=== PATIENT | female | born 1995 | race Caucasian/White ===

== ENCOUNTER 2024-06-06 07:31 | Emergency (ER) | payer OTHER, SELFPAY ==
--- NOTE | ~2024-06-06 | CT_ITS ---
EXAMINATION: CT LUMBAR SPINE WITHOUT CONTRAST CLINICAL INFORMATION: Right lower back pain radiating to right lower extremity for many months COMPARISON: None available. TECHNIQUE: Multiple 2 mm axial images of the lumbar spine were obtained from lower T12 to S1 levels without IV contrast enhancement. Bone window and soft tissue window images were reconstructed. Coronal and Sagittal bone window images were also reconstructed from the axial image data. This CT examination was performed using dose optimization techniques as appropriate, variously including the following: *Automated exposure control *Adjustment of mA and/or kV according to patient size (this includes techniques or standardized protocols for targeted exams where dose is matched to indication/reason for exam; i.e. extremities or head) *Use of iterative reconstruction technique DLP; 383 mGy-cm FINDINGS: The visualized lumbar vertebrae are intact with normal alignment. T12/L1: Bony structures are intact with normal alignment. Intervertebral disc height is normal. Bilateral neuroforamina are patent. Bilateral apophyseal joints are intact with normal alignment. L-1/L-2: Bony structures are intact with normal alignment. Intervertebral disc height is normal. Bilateral neuroforamina are patent. Bilateral apophyseal joints are intact with normal alignment. L2/L3: Bony structures are intact with normal alignment. Intervertebral disc height is normal. Bilateral neuroforamina are patent. Bilateral apophyseal joints are intact with normal alignment. L3/L4: Bony structures are intact with normal alignment. Intervertebral disc height is normal. Bilateral neuroforamina are patent. Bilateral apophyseal joints are intact with normal alignment. L4/L5: Bony structures are intact with normal alignment. Intervertebral disc height is normal. There is marked posterior disc protrusion effacing the anterior thecal sac. There is marked spinal stenosis due to additional impingement by hypertrophic ligamentum flavum. Bilateral neuroforamina are moderately stenosed. Bilateral apophyseal joints are intact with normal alignment. L5/S1: Bony structures are intact with normal alignment. Intervertebral disc height is normal. Bilateral neuroforamina are patent. Bilateral apophyseal joints are intact with normal alignment. CT/CT lumbar spine wo IV con IMPRESSION: Marked posterior disc protrusion at L4/L5 effacing the anterior thecal sac. There is marked spinal stenosis due to additional impingement by hypertrophic ligamentum flavum. Bilateral neuroforamina are moderately stenosed. Electronically signed by: Elliott Tijerina MD 06/06/2024 01:01 PM EDT RP
[2024-06-06 07:33] VITALS: BP 131/96; PULSE 100; RESP 18; TEMP 36.3; O2SAT 100; BMI 27.4
--- NOTE | 2024-06-06 07:37 | ED.GENADULT ---
HPI - General Adult General Chief complaint: Back Pain/Injury Stated complaint: Sciatic pain Time Seen by Provider: 06/06/24 07:33 Source: patient Mode of arrival: ambulatory Limitations: no limitations History of Present Illness ED Provider: Brooks TOUSSAINT narrative: Patient is a 29-year-old female presenting to the emergency department with complaint of severe right lower back pain radiating down right leg. States pain initially began in February, was treated with a short course of steroids at urgent care with minimal improvement. Saw PCP who ordered an x-ray, patient unsure of results, and prescribed gabapentin. Has gone to PT all without significant improvement. States Thursday the pain increased significantly after moving in bed. Denies fevers, saddle anesthesia, bowel or bladder incontinence. Denies history of cancer or IV drug use. Has also tried naproxen and other OTC pain medication without relief. Unable to sleep last night due to pain. MD complaint: back pain Onset (ago): month(s) Location: back Radiation: distal Severity: severe Quality: burning Pain Consistency: constant Relieving factors: none Related Data Previous Rx's ?Medication ?Instructions ?Recorded gabapentin 100 mg capsule 100 mg PO TID #30 caps 06/06/24 ketorolac 10 mg tablet 10 mg PO Q8H PRN pain #12 tabs 06/06/24 lidocaine 5 % topical patch 1 patch topical DAILY #15 ea 06/06/24 prednisone 10 mg tablet 10 mg PO DIRECTED #34 tabs 06/06/24 Allergies Allergy/AdvReac Type Severity Reaction Status Date / Time No Known Allergies Allergy Verified 06/06/24 07:34 Review of Systems Review of Systems: As per HPI. Yes all other systems are reviewed and are negative Constitutional: Constitutional: Reports as per HPI [facility] Social History Social History Advance Directives: No Advance Directives Information Provided: Yes Do you have a plan to hurt others: No Plan Physical Exam ED Vital Signs: Vital Signs - 24 hr 06/06/24 07:33 06/06/24 08:04 06/06/24 09:47 Temperature 97.3 F Pulse Rate 100 72 Respiratory Rate 18 18 16 Blood Pressure 131/96 H 115/79 Pulse Oximetry 100 98 Oxygen Delivery Method Room Air 06/06/24 11:44 Temperature 97.9 F Pulse Rate 100 Respiratory Rate 20 Blood Pressure 131/94 H Pulse Oximetry 96 Oxygen Delivery Method Room Air BMI result Body Mass Index 27.4 Vital signs have been reviewed and appear to be correct. Blood pressure normal. Heart rate normal. Respiratory rate normal. Temperature normal. Oxygen saturation normal. Const General: cooperative, healthy appearing and no acute distress Orientation/consciousness: oriented to person, oriented to place, oriented to time and patient oriented x3 Limitations: no limitations HENMT Head: Yes normocephalic and Yes atraumatic Ears: external ears normal General nose exam: Normal external nose present Face and sinus: Yes face symmetric Mouth: oropharynx normal and moist mucous membranes Throat: Yes uvula midline Eyes Pupils: Equal, round and reactive pupils present Neck Neck: Yes normal visual inspection and Yes supple Resp Effort & Inspection: normal respiratory effort and able to speak in complete sentences Auscultation: clear to auscultation bilaterally Cardio Rate: regular rate Rhythm: regular rhythm Heart sounds: S1 normal heart sound present and S2 normal heart sound present GI Palpation (GI): Soft to palpation and nontender Auscultation: normoactive bowel sounds General: Yes no CVA tenderness Back/Spine/Pelvis Back: no CVA tenderness Thoracic/Lumbar Spine: thoracic and lumbar spine normal to inspection, thoraco-lumbar ROM normal, pain with thoraco-lumbar ROM, No thoracic spinal tenderness, No lumbar spinal tenderness and straight leg raise positive right Skin General skin exam: elasticity normal and turgor normal Neuro General: oriented to person, oriented to place, oriented to time, patient oriented x3, gait normal, tone normal, moves all extremities, Normal light touch and pain sensation, no focal motor deficits, CN's II-XI intact bilaterally and deep tendon reflexes 2+ bilaterally Cranial nerves: Yes Equal, round and reactive pupils present Cognition (Neuro): normal cognition Extrem General: Yes full ROM, Yes no pedal edema and Yes no calf tenderness Psych Mental Status: mental status grossly normal Affect: normal affect Thought process: Normal thought process present Medications Administered Discontinued Medications Generic Name Dose Route Start Last Admin Trade Name Umbertoq PRN Reason Stop Dose Admin Cyclobenzaprine HCl 10 mg 06/06/24 11:50 06/06/24 12:02 Cyclobenzaprine Hcl 10 Mg Tablet PO 06/06/24 11:51 10 mg ONCE ONE Administration Diazepam 2.5 mg 06/06/24 09:50 06/06/24 10:45 Diazepam 10 Mg/2 Ml Cartridge IVPUSH 06/06/24 09:51 2.5 mg STAT STA Administration Hydromorphone HCl 1 mg 06/06/24 07:44 06/06/24 08:04 Hydromorphone Hcl 1 Mg/Ml Syringe IVPUSH 06/06/24 07:45 1 mg ONCE ONE Administration Protocol Ketorolac Tromethamine 15 mg 06/06/24 07:44 06/06/24 08:03 Ketorolac Tromethamine 15 Mg/Ml Vial IVPUSH 06/06/24 07:45 15 mg ONCE ONE Administration Methylprednisolone Sodium Succinate 125 mg 06/06/24 07:44 06/06/24 08:03 Methylprednisolone Sod Succ 125 Mg/2 Ml Vial IVPUSH 06/06/24 07:45 125 mg ONCE ONE Administration Medical Decision Making Medical Decision Making [facility] Narrative: Patient is a 29-year-old female presenting to the emergency department with complaint of severe right lower back pain radiating down right leg. On exam patient is awake, A+Ox3, VS WNL, afebrile, normal neurological exam without focal deficits, physical exam findings as above. Given reported symptoms and physical exam findings, initial differential includes lumbar strain, lumbar radiculopathy, degenerative disc disease, disc herniation, spinal stenosis, spondylosis. Less likely vertebral fracture. Do not suspect malignancy/mass, SEA, cauda equina/cord compression. Disc protrusion at L4/L5 with spinal stenosis. My interpretation is in agreement with the radiologist's interpretation. Patient updated on results and all questions answered. Pain has improved with medication in the ED. Patient comfortable with discharge home, will send prescriptions for toradol, prednisone, and lidocaine patches. Patient declining muslce relaxer at this time. Will refer to neurosurgery for further evaluation and management. Return precautions discussed at bedside. Patient verbalized understanding of and agreement with plan. Differential Diagnosis Differential Diagnoses: The differential diagnosis associated with the presentation includes As per [facility] Admission/Observation Consideration of admission/observation: Escalation of care including admission/observation considered Patient would have been admitted to the hospital had their work up had any findings where hospital admission was appropriate and their clinical presentation warranted hospital admission. Lab Data [facility] Lab Attestation statement: I reviewed the patient's lab results. Labs: Lab Results 06/06/24 Range/Units 08:57 Urine Test NEGATIVE (NEGATIVE) Independent Interpretation I performed an independent interpretation of an: CT Scan Interpretation: Disc protrusion at L4/L5 with spinal stenosis. Radiology Impression Discussion of test interpretation with radiology: I have reviewed the radiologist's reading. Radiologist Impression: CT/CT lumbar spine wo IV con IMPRESSION: Marked posterior disc protrusion at L4/L5 effacing the anterior thecal sac. There is marked spinal stenosis due to additional impingement by hypertrophic ligamentum flavum. Bilateral neuroforamina are moderately stenosed. External Record Review External record reviewed: Inpatient record, Office record and Outpatient record Prescription Management I considered prescription management with: Pain Medication and Other Discharge Plan Discharge Clinical Impression: Bulging lumbar disc, Lumbar radiculopathy Patient Disposition: Home, Self-Care Instructions: Lumbar Radiculopathy (ED) Additional Instructions: Follow up with neurosurgery for further evaluation and management. Toradol as prescribed for pain, do not take with other NSAIDs. Prednisone taper to decrease inflammation. Lidocaine patches to apply topically for up to 12 hours in a 24 hour period. Return with any new weakness, numbness, tingling to extremities, loss of bowel or bladder control, new groin numbness or any other concerning symptoms. Prescriptions: New ketorolac 10 mg tablet 10 mg PO Q8H PRN (Reason: pain) Qty: 12 0RF Rx Instructions: maximum total duration of 5 days from all oral, intranasal, or parenteral formulations gabapentin 100 mg capsule 100 mg PO TID Qty: 30 0RF lidocaine 5 % adhesive patch,medicated 1 patch topical DAILY Qty: 15 0RF Rx Instructions: leave on most painful area for up to 12 hrs prednisone 10 mg tablet 10 mg PO DIRECTED Qty: 34 0RF Rx Instructions: 60mg (6 tabs) x 1 day, then 50mg (5 tabs) x 2 days, then 40mg (4 tabs) x 2 days, then 30mg (3 tabs) x 2 days, then 20mg (2 tabs) x 2 days Referrals: Naldo Echols PA [Physician Program Manager] - Delio Yeboah MD, PhD [Physician] - Stand Alone Forms: Work/School Release Print Language: [place]
[2024-06-06] MEDS: Ketorolac Tromethamine 15 MG/ML VIAL IVPUSH (08:03)
[2024-06-06] MEDS: methylPREDNISolone Sod Succ 125 MG/2 ML VIAL IVPUSH (08:03)
[2024-06-06 08:04] VITALS: RESP 18
[2024-06-06] MEDS: HYDROmorphone HCl 1 MG/ML SYRINGE IVPUSH (08:04)
[2024-06-06 09:06] LABS: UPreg QC Valid YES; Urine Pregnancy NEGATIVE (NEGATIVE)
[2024-06-06 09:47] VITALS: BP 115/79; PULSE 72; RESP 16; O2SAT 98
[2024-06-06] MEDS: diazePAM 10 MG/2 ML CARTRIDGE 2.5 MG IVPUSH (10:45)
[2024-06-06 11:44] VITALS: BP 131/94; PULSE 100; RESP 20; TEMP 36.6; O2SAT 96
[2024-06-06] MEDS: Cyclobenzaprine HCl 10 MG TABLET PO (12:02)
[2024-06-06 13:45] VITALS: BP 131/94; PULSE 100; RESP 20; TEMP 36.6; O2SAT 96
== END 2024-06-06 13:45 | disposition home or self-care (01) ==
PROVIDERS: Registered Nurse Emergency; Emergency Provider Emergency Medicine; PCP Registered Nurse
DX: M51.360 Other intervertebral disc degeneration, lumbar region with discogenic back pain only (principal); M48.061 Spinal stenosis, lumbar region without neurogenic claudication
CPT/HCPCS: 72131; 81025; 96374; 96375; 99284; J1171; J1885; J2919; J3360